=== PATIENT | female | born 1965 | race Caucasian/White ===

== ENCOUNTER → 2019-11-24 | Outpatient (CLI) | payer OTHER ==
[~2019-11-24] VITALS: Ht 162.6 cm; Wt 71.7 kg
[~2019-11-24] MED LIST: BLACK CUMIN SEED OIL PO; CALCIUM500 MG PO; CHROMIUM PICO400 MCG PO; GLUCOSAMINE &1 EAC1 PO; K2 PLUS D3 TAB1 EACH PO; MULTI VITAMIN1 EACH PO; OMEGA 3-6-9 11200 M1 PO; PEPCID40 MG PO; PRAVASTATIN SOD40 MG PO; PROBIOTIC1 EAC7 PO; PROTONIX40 M2 PO; VITAMIN C1000 MG PO; [UNRECOGNIZED DRUG - OTHER] PO
== END | disposition home or self-care (01) ==
LOC: GI 07:31
PROVIDERS: ATTEND Internal Medicine Gastroenterology
DX: K21.0 Gastro-esophageal reflux disease with esophagitis (principal); G43.909 Migraine, unspecified, not intractable, without status migrainosus; E78.00 Pure hypercholesterolemia, unspecified; F32.9 Major depressive disorder, single episode, unspecified; E78.5 Hyperlipidemia, unspecified; M81.0 Age-related osteoporosis without current pathological fracture; Z98.890 Other specified postprocedural states; Z90.710 Acquired absence of both cervix and uterus; Z90.49 Acquired absence of other specified parts of digestive tract; Z79.899 Other long term (current) drug therapy; Z91.041 Radiographic dye allergy status; Z88.8 Allergy status to other drugs, medicaments and biological substances; Z11.59 Encounter for screening for other viral diseases
CPT/HCPCS: 62110; 62900

== ENCOUNTER → 2019-12-30 | Outpatient (CLI) | payer OTHER | LOC: CAT 11:24 | PROVIDERS: ATTEND Internal Medicine Cardiovascular Disease | DX: Z13.6 Encounter for screening for cardiovascular disorders (principal); I25.10 Atherosclerotic heart disease of native coronary artery without angina pectoris; E78.00 Pure hypercholesterolemia, unspecified ==

== ENCOUNTER → 2020-01-12 | Outpatient (CLI) | payer OTHER | LOC: SJCVCIMAG 10:42 | PROVIDERS: ATTEND Internal Medicine Cardiovascular Disease | DX: Z01.818 Encounter for other preprocedural examination (principal) ==

== ENCOUNTER → 2020-08-02 | Outpatient (CLI) | payer OTHER ==
[~2020-08-02] MED LIST changes: +TOPAMAX SPRINKL PO
== END ==
LOC: LAB 13:49
PROVIDERS: ATTEND Surgery
DX: Z01.812 Encounter for preprocedural laboratory examination (principal); Z20.822 Contact with and (suspected) exposure to COVID-19

== ENCOUNTER 2020-08-06 06:28 | Day surgery (SDC) | payer OTHER ==
[2020-08-06] VITALS (7 sets, daily range): BP systolic 128–150; BP diastolic 72–90
[~2020-08-06] VITALS: Ht 162.6 cm; Wt 77.6 kg
[2020-08-06 07:03] LABS: HEMATOCRIT 44.6 % (37.0-47.0); HEMOGLOBIN 14.7 gm/dL (12.0-15.0); MCH 29.3 pg (26.0-34.0); MCHC 32.9 g/dL (28.0-37.0); MCV 88.9 fL (80.0-100.0); RBC 5.02 mil/uL (4.20-5.00); RDW 12.4 % (10.5-14.5); WBC 5.6 thou/uL (4.0-11.0)
[2020-08-06 07:10] LABS: CALCIUM 9.4 mg/dL (8.5-10.1); POTASSIUM 3.6 mmol/L (3.5-5.1)
--- NOTE | 2020-08-06 15:51 | NUR ---
ASSESSMENT: CM REVIEWED CHART AND SPOKE WITH PATIENT AT THE BEDSIDE. PT IS ALERT AND ORIENTED X4. PT REPORTS SHE LIVES AT HOME WITH HER . PT IS FULLY INDEPENDENT WITH ADLS AND AMBULATION. PT IS S/P LAP HERNIA REPAIR. PT REPORTS THAT SHE SHOULD HAVE NO NEEDS AT DISCHARGE. PT HAS NO HX OF HH OR SNF. PT DOES NOT ANTICIPATE HAVING ANY NEEDS FROM CM.
--- NOTE | 2020-08-06 17:45 | NUR ---
Pt transferred from recovery room approx 1100. Pt a&ox4. Pain controlled with prn pain meds. Lap sites intact and well-approximated. Able to void. Pt requests medication for acid reflex. Provider notified. New orders noted. Pt will stay in the hospital overnight. Call light within reach. Will continue to monitor.
--- NOTE | 2020-08-07 00:33 | NUR ---
ASSUMED PT CARE AT 1900.PT C/O PAIN ON HER ABD,MANAGED WITH MED.LAP SITES C/DI COVERED WITH STERI STRIPS.ICE PACK TO HER ABD PER PT'S REQUEST.PT SLEEPING ON HER BED AT THIS TIME.CALL LIGHT WITHIN REACH.
[2020-08-07 04:00] VITALS: BP 116/68
[2020-08-07 07:27] VITALS: BP 132/79
--- NOTE | 2020-08-07 10:17 | NUR ---
Assumed care of pt at 0700. Pt a&ox4. Lap sites c/d/i. Pain controlled with prn pain meds. Up ad emy. Likely d/c to home today. Pt calls appropritely. Will continue to mointor.
[2020-08-07] MEDS ORDERED: NORCO5 PO (11:10)
[2020-08-07 11:22] VITALS: BP 132/79
--- NOTE | 2020-08-08 09:05 | O ---
[facility] [place] [address] OPERATIVE REPORT Name: MARY BURNETTE Room #: [facility] M.Chucky.#: [id number] Admission: 08/06/20 Attend Phys: Roosevelt Humphries, Discharge: 08/07/20 Date of : 63 Report #: [id number] THIS REPORT FOR: cc: Yanique Philip MD, Lisa A. MD Patterson,Roosevelt Peters MD ~ DATE OF SERVICE: 08/06/2020 PREOPERATIVE DIAGNOSIS: Hiatal hernia with gastroesophageal reflux disease. POSTOPERATIVE DIAGNOSIS: Hiatal hernia with gastroesophageal reflux disease. OPERATION: Laparoscopic repair of hiatal hernia without mesh implantation with placement of LINX antireflux device. SURGEON: Roosevelt Humphries MD ANESTHESIA: General. ESTIMATED BLOOD LOSS: Minimal. SPECIMEN: None. DESCRIPTION OF PROCEDURE: After informed consent was obtained, the patient was brought to the operating room and placed supine. SCDs were placed and working, preoperative antibiotics were administered, general anesthesia was induced. The abdomen was prepped and draped in the usual sterile fashion. A Veress needle was in the left upper quadrant. Pneumoperitoneum was established. Left periumbilical 5 mm trocar was placed under direct vision with Visiport technique. I then placed 2 right upper quadrant and 1 left upper quadrant 5-mm trocar, all under direct vision. The patient was placed in the reverse Trendelenburg position. An epigastric port was made and Nathansen retractor was inserted. The liver was retracted anteriorly and superiorly. This allowed visualization of the hiatus. The pars flaccida was incised with LigaSure. Cautery dissection was made up to the right puam. The left puma was identified. A small hiatal hernia was fully reduced. Distal esophagus was then isolated with a Terrie drain. A full mediastinal dissection was undertaken. A window was made between the posterior vagus nerve and the distal esophagus. A LINX sizer was placed. This was a size 14 LINX. Therefore, a 14 LINX was placed. It was clasped around the distal esophagus between the vagus nerve and the esophagus. It did not appear too loose or too tight. The liver was placed back into its normal position. The retractor was removed. The ports were [facility] [address] [place] [address] OPERATIVE REPORT Name: MARY BURNETTE [id number] Admission: 08/06/20 Attend Phys: Roosevelt Humphries, Discharge: 08/07/20 Date of : 63 Report #: [id number] removed under direct vision. The skin was closed with 4-0 Monocryl. Incisions were dressed with Steri-Strips. COMPLICATIONS: None. DISPOSITION: The patient was taken to recovery in satisfactory condition. <ELECTRONICALLY SIGNED> By: Roosevelt Humphries MD 08/08/20 0905 1104 1151 Roosevelt Humphries MD /nt
== END 2020-08-07 11:43 | disposition home or self-care (01) ==
LOC: TBA 06:28 → OR 06:28 → TBA 06:29 → OR 09:37 → 4S 11:26 → OR 14:39
PROVIDERS: ATTEND Surgery
DX: K44.9 Diaphragmatic hernia without obstruction or gangrene (principal); K21.9 Gastro-esophageal reflux disease without esophagitis; E78.5 Hyperlipidemia, unspecified; G43.909 Migraine, unspecified, not intractable, without status migrainosus; F41.1 Generalized anxiety disorder; M85.80 Other specified disorders of bone density and structure, unspecified site; Z98.890 Other specified postprocedural states; Z79.899 Other long term (current) drug therapy; Z90.710 Acquired absence of both cervix and uterus; Z90.49 Acquired absence of other specified parts of digestive tract
CPT/HCPCS: 10102; 50010; 50101; 50386; 50555; 51489; 52265; 52266; 53307; 53310; 56462; 56525; 56526; 56527; 57092; 58104; 58574; 62110; 62900; 70005